=== PATIENT | female | born 1940 | race Caucasian/White ===

== ENCOUNTER 2016-11-22 13:26 | Inpatient (IN) | payer MEDICARE, SELFPAY ==
[~2016-11-22] VITALS: Ht 160 cm; Wt 79.1 kg
[~2016-11-22 13:26] MED LIST: ASPIRIN EC81 MG PO; AUGMENTIN 875-1 EACH PO; COZAAR 50MG TAB50 MG PO; EPIPEN 2-P0.3 MG/0.3 INJ; IMDUR ER TAB 3030 MG PO; LORTAB 5-325 M1 EACH PO; NORVASC 5 MG TAB5 MG PO; RANEXA500 MG PO; ZOCOR 40 MG TAB40 MG PO; [UNRECOGNIZED DRUG - CODE] IV
[2016-11-22 16:52] LABS: HEMOGLOBIN 11.9 gm/dl (12.3-15.3); RED BLOOD COUNT 4.06 M/UL (4.00-5.10); WHITE BLOOD COUNT 9.7 K/UL (4.5-11.0)
[2016-11-22 17:14] LABS: BUN/CREATININE RATIO 18 (0-10)
[2016-11-23] MEDS ORDERED: NORVASC 5 MG TAB5 MG PO (01:23)
[2016-11-23] MEDS ORDERED: IMDUR ER TAB 3030 MG PO (01:24)
[2016-11-23] MEDS ORDERED: LIPITOR TAB 2020 MG PO (01:25)
[2016-11-23] MEDS ORDERED: LOSARTAN POTASS50 MG PO (01:25)
[2016-11-23 04:05] LABS: HEMOGLOBIN 11.7 gm/dl (12.3-15.3); WHITE BLOOD COUNT 10.1 K/UL (4.5-11.0)
[2016-11-23 04:28] LABS: BUN/CREATININE RATIO 17 (0-10)
[2016-11-24 06:20] LABS: HEMOGLOBIN 10.6 gm/dl (12.3-15.3); RED BLOOD COUNT 3.62 M/UL (4.00-5.10)
[2016-11-24 06:57] LABS: BUN/CREATININE RATIO 17 (0-10)
[2016-11-25 05:22] LABS: BUN/CREATININE RATIO 15 (0-10)
[2016-11-26 05:28] LABS: HEMOGLOBIN 9.4 gm/dl (12.3-15.3); RED BLOOD COUNT 3.26 M/UL (4.00-5.10); WHITE BLOOD COUNT 9.9 K/UL (4.5-11.0)
[2016-11-26 05:59] LABS: BUN/CREATININE RATIO 17 (0-10)
[2016-11-27 05:10] LABS: HEMOGLOBIN 9.5 gm/dl (12.3-15.3); RED BLOOD COUNT 3.32 M/UL (4.00-5.10)
[2016-11-27 05:12] LABS: WHITE BLOOD COUNT 6.6 K/UL (4.5-11.0)
[2016-11-27 05:30] LABS: BUN/CREATININE RATIO 20 (0-10)
[2016-11-29] MEDS ORDERED: FLAGYL IV (11:56)
[2016-11-29] MEDS ORDERED: LACTINEX PACKET1 PKT PO (11:56)
[2016-11-29] MEDS ORDERED: LEVAQUIN I500 MG/100 IV (11:57)
[2017-01-01] MEDS ORDERED: ASPIRIN CHEWABL81 MG PO (07:09)
[2017-01-01] MEDS ORDERED: SIMVASTATIN40 MG PO (07:12)
[2017-01-02] MEDS ORDERED: RANEXA1000 MG PO (01:24)
== END 2016-11-29 13:15 | disposition home health service (06) | DRG 392 ==
LOC: ER1 13:26 → MED SURG 4 22:09 → ZEROF 22:09 → MED SURG 4 23:37
PROVIDERS: Hospitalist; Internal Medicine; Physician Assistant Medical; Specialist/Technologist Athletic Trainer; Surgery; ADMIT Internal Medicine
PROC: 02HV33Z Insertion of Infusion Device into Superior Vena Cava, Percutaneous Approach (ICD-10-PCS; principal; 2016-11-28)
PROC: B548ZZA Ultrasonography of Superior Vena Cava, Guidance (ICD-10-PCS; 2016-11-28)
DX: K57.20 Diverticulitis of large intestine with perforation and abscess without bleeding (principal); K56.69 Other intestinal obstruction; E87.6 Hypokalemia; I25.10 Atherosclerotic heart disease of native coronary artery without angina pectoris; I10 Essential (primary) hypertension; E78.5 Hyperlipidemia, unspecified; K52.9 Noninfective gastroenteritis and colitis, unspecified; D64.9 Anemia, unspecified; K63.89 Other specified diseases of intestine; Z79.899 Other long term (current) drug therapy; Z90.49 Acquired absence of other specified parts of digestive tract; Z98.890 Other specified postprocedural states; Z80.3 Family history of malignant neoplasm of breast; Z80.1 Family history of malignant neoplasm of trachea, bronchus and lung; Z82.49 Family history of ischemic heart disease and other diseases of the circulatory system
CPT/HCPCS: 36415; 80048; 80053; 82550; 82553; 83605; 83690; 83874; 84132; 84484; 85025; 85027; 86140; 87040; 93005; 96361; 96365; 96375; 96376; 99285; C9113; J1335; J1650; J1956; J2270; J2405; J2543; J3480; J7030; J7050; Q9962

== ENCOUNTER → 2017-01-01 | Day surgery (SDC) | payer MEDICARE ==
[~2017-01-01] VITALS: Ht 160 cm; Wt 72.6 kg
[~2017-01-01] MED LIST changes: +ASPIRIN CHEWABL81 MG PO; +CAPSAICIN60 GM TP; +FLAGYL IV; +FLAGYL500 MG PO; +LACTINEX PACKET1 PKT PO; +LEVAQUIN I500 MG/100 IV; +LIPITOR TAB 2020 MG PO; +LOSARTAN POTASS50 MG PO; +NEOMYCIN SULFA500 M1 PO; +NORCO 7.5-3251 EACH PO; +PROTONIX40 MG PO; +RANEXA1000 MG PO; +SIMVASTATIN40 MG PO
[2017-01-01 07:43] LABS: HEMOGLOBIN 11.8 gm/dl (12.3-15.3); RED BLOOD COUNT 4.05 M/UL (4.00-5.10); WHITE BLOOD COUNT 7.6 K/UL (4.5-11.0)
[2017-01-01 08:05] LABS: BUN/CREATININE RATIO 17 (0-10)
== END | disposition home or self-care (01) ==
LOC: OR 06:16
PROVIDERS: Anesthesiology; Surgery
PROC: 0DJD8ZZ Inspection of Lower Intestinal Tract, Via Natural or Artificial Opening Endoscopic (ICD-10-PCS; principal; 2017-01-01 07:30)
DX: K57.30 Diverticulosis of large intestine without perforation or abscess without bleeding (principal); K56.69 Other intestinal obstruction; K64.4 Residual hemorrhoidal skin tags; I25.119 Atherosclerotic heart disease of native coronary artery with unspecified angina pectoris; I10 Essential (primary) hypertension; R00.1 Bradycardia, unspecified; I49.5 Sick sinus syndrome; M19.90 Unspecified osteoarthritis, unspecified site; E78.5 Hyperlipidemia, unspecified; Z87.19 Personal history of other diseases of the digestive system; Z87.442 Personal history of urinary calculi; Z79.82 Long term (current) use of aspirin; Z79.899 Other long term (current) drug therapy; Z90.49 Acquired absence of other specified parts of digestive tract; Z98.51 Tubal ligation status; Z96.642 Presence of left artificial hip joint; Z85.828 Personal history of other malignant neoplasm of skin; Z96.653 Presence of artificial knee joint, bilateral
CPT/HCPCS: 36415; 80048; 85025; 86850; 86900; 86901; J7120

== ENCOUNTER 2017-01-02 05:42 | Inpatient (IN) | payer MEDICARE ==
[~2017-01-02] VITALS: Ht 160 cm; Wt 71.7 kg
[~2017-01-02 05:42] MED LIST changes: -CAPSAICIN60 GM TP; -FLAGYL500 MG PO; -NEOMYCIN SULFA500 M1 PO; -NORCO 7.5-3251 EACH PO; -PROTONIX40 MG PO
[2017-01-02] MEDS ORDERED: FLAGYL500 MG PO (06:24)
[2017-01-02] MEDS ORDERED: NEOMYCIN SULFA500 M1 PO (06:27)
[2017-01-03 06:21] LABS: HEMOGLOBIN 12.6 gm/dl (12.3-15.3); RED BLOOD COUNT 4.26 M/UL (4.00-5.10); WHITE BLOOD COUNT 9.9 K/UL (4.5-11.0)
[2017-01-03 06:40] LABS: BUN/CREATININE RATIO 10 (0-10)
[2017-01-05 06:19] LABS: WHITE BLOOD COUNT 7.7 K/UL (4.5-11.0)
[2017-01-05 06:25] LABS: BUN/CREATININE RATIO 12 (0-10)
[2017-01-05 06:48] LABS: RED BLOOD COUNT 3.23 M/UL (4.00-5.10)
[2017-01-05 06:49] LABS: HEMOGLOBIN 9.5 gm/dl (12.3-15.3)
[2017-01-06 04:40] LABS: HEMOGLOBIN 9.9 gm/dl (12.3-15.3); RED BLOOD COUNT 3.41 M/UL (4.00-5.10); WHITE BLOOD COUNT 6.5 K/UL (4.5-11.0)
[2017-01-06 05:03] LABS: BUN/CREATININE RATIO 10 (0-10)
[2017-01-07] MEDS ORDERED: NORCO 7.5-3251 EACH PO (16:24)
== END 2017-01-07 17:25 | disposition home or self-care (01) | DRG 330 ==
LOC: ZOBSOF 05:42 → MED SURG 4 05:42
PROVIDERS: ADMIT Surgery
PROC: 0D1N0ZP Bypass Sigmoid Colon to Rectum, Open Approach (ICD-10-PCS; 2017-01-02)
PROC: 0DTG0ZZ Resection of Left Large Intestine, Open Approach (ICD-10-PCS; principal; 2017-01-02 07:30)
DX: K57.20 Diverticulitis of large intestine with perforation and abscess without bleeding (principal); J95.89 Other postprocedural complications and disorders of respiratory system, not elsewhere classified; J98.11 Atelectasis; Y83.8 Other surgical procedures as the cause of abnormal reaction of the patient, or of later complication, without mention of misadventure at the time of the procedure; Y73.3 Surgical instruments, materials and gastroenterology and urology devices (including sutures) associated with adverse incidents; Y92.239 Unspecified place in hospital as the place of occurrence of the external cause; I10 Essential (primary) hypertension; E87.6 Hypokalemia; I27.2 Other secondary pulmonary hypertension; I08.1 Rheumatic disorders of both mitral and tricuspid valves; Z85.828 Personal history of other malignant neoplasm of skin; Z87.442 Personal history of urinary calculi; Z79.82 Long term (current) use of aspirin; Z79.899 Other long term (current) drug therapy; Z88.8 Allergy status to other drugs, medicaments and biological substances; Z96.642 Presence of left artificial hip joint; Z96.653 Presence of artificial knee joint, bilateral; Z90.49 Acquired absence of other specified parts of digestive tract; Z98.890 Other specified postprocedural states
CPT/HCPCS: 36415; 80048; 84132; 85025; 85027; 86850; 86900; 86901; C9113; J0694; J1200; J1650; J2270; J2405; J2710; J2765; J2795; J3010; J3480; J7030; J7050; J7120

== ENCOUNTER 2017-01-20 10:16 | Observation (INO) | payer MEDICARE, OTHER ==
[~2017-01-20] VITALS: Ht 160 cm; Wt 71.2 kg
[~2017-01-20 10:16] MED LIST changes: +FLAGYL500 MG PO; +NEOMYCIN SULFA500 M1 PO; +NORCO 7.5-3251 EACH PO
[2017-01-20 10:50] LABS: RED BLOOD COUNT 4.11 M/UL (4.00-5.10); WHITE BLOOD COUNT 12.2 K/UL (4.5-11.0)
[2017-01-20 11:16] LABS: BUN/CREATININE RATIO 16 (0-10)
[2017-01-21 04:45] LABS: HEMOGLOBIN 9.9 gm/dl (12.3-15.3); RED BLOOD COUNT 3.43 M/UL (4.00-5.10); WHITE BLOOD COUNT 6.4 K/UL (4.5-11.0)
[2017-01-21 05:03] LABS: BUN/CREATININE RATIO 19 (0-10)
[2017-01-21] MEDS ORDERED: CAPSAICIN60 GM TP (13:18)
[2017-01-21] MEDS ORDERED: PROTONIX40 MG PO (13:19)
== END 2017-01-21 14:05 | disposition home or self-care (01) ==
LOC: ER1 10:16 → MED SURG 4 12:50 → ZEROF 12:50 → MED SURG 4 16:29
PROVIDERS: Emergency Medicine; ADMIT Internal Medicine
DX: R07.89 Other chest pain (principal); I10 Essential (primary) hypertension; I25.10 Atherosclerotic heart disease of native coronary artery without angina pectoris; Z86.69 Personal history of other diseases of the nervous system and sense organs; Z79.891 Long term (current) use of opiate analgesic; Z79.82 Long term (current) use of aspirin; Z79.899 Other long term (current) drug therapy; Z87.19 Personal history of other diseases of the digestive system; Z98.51 Tubal ligation status; Z90.49 Acquired absence of other specified parts of digestive tract; Z88.8 Allergy status to other drugs, medicaments and biological substances; Z88.1 Allergy status to other antibiotic agents; E78.5 Hyperlipidemia, unspecified; M19.90 Unspecified osteoarthritis, unspecified site; M81.0 Age-related osteoporosis without current pathological fracture; Z96.642 Presence of left artificial hip joint; Z96.653 Presence of artificial knee joint, bilateral
CPT/HCPCS: ECHO; 36415; 71010; 80048; 80053; 80076; 82550; 82553; 83690; 83735; 83874; 83880; 84484; 85025; 93005; 93306; 96365; 96366; 96368; 96375; 99285; G0378 ×2; J1644; J1885; J2270; J2405; J7050; Q9963